=== PATIENT | male | born 1940 | race Caucasian/White ===

== ENCOUNTER 2024-01-24 06:21 | Observation (INO) ==
[~2024-01-24 06:21] MED LIST: Buffered Lidocaine 1% SYRIN 1 ml INTRADERM ONE; Lactated Ringers 1000 ml BAG 1,000 ML IV SCH
[2024-01-24 07:41] LABS: Rapid COVID-19 Molecular Undetected (Undetected)
[2024-01-24] MEDS ORDERED: Propofol 0 MG/0 ML BTL ONE (08:10)
[2024-01-24] MEDS ORDERED: Lidocaine 2% PF 5 ML VIAL ONE (08:11)
[2024-01-24] MEDS ORDERED: ceFAZolin 2 GM PREMIX 2 GM/50 ML BAG ONE (08:14)
[2024-01-24] MEDS ORDERED: Tranexamic Acid 1 GM/100ML BAG 2,000 MG/200 ML BAG IV ONE (08:14)
[2024-01-24] MEDS ORDERED: fentaNYL 100 mcg/2 ml 50 MCG/ML VIAL ONE (08:44)
[2024-01-24] MEDS ORDERED: Midazolam 2 mg/2 ml VIAL 1 mg/ml 2 ml VIAL (2 mg) ONE ×2 (08:44→10:49)
[2024-01-24] MEDS ORDERED: ROPIVACAINE 5 MG/ML 30 ML BTL (0.5%) ONE ×2 (08:45→09:13)
[2024-01-24] MEDS ORDERED: Bupivacaine 0.5% SDV PF 30ML VIAL ONE (09:19)
[2024-01-24] MEDS ORDERED: Rocuronium 50 mg VIAL 10 mg/ml 5 ml VIAL (50 mg) ONE (09:39)
[2024-01-24] MEDS ORDERED: fentaNYL 250 mcg/5 ml 50 MCG/ML 5 ml VIAL (250 MCG) ONE (09:39)
[2024-01-24] MEDS ORDERED: Glycopyrrolate IV 0.2 MG/ML 1 ML VIAL ONE (09:57)
[2024-01-24] MEDS ORDERED: Dexamethasone IV 4 MG/ML VIAL 1 ml VIAL ONE (10:20)
[2024-01-24] MEDS ORDERED: Ondansetron 4 mg VIAL 2 MG/ML 2 ml VIAL ONE (10:20)
[2024-01-24] MEDS ORDERED: Propofol 10 MG/ML 20 ML BTL ONE (10:22)
[2024-01-24] MEDS ORDERED: HYDROmorphone 0.5 MG/0.5 ML SYRINGE ONE (10:24)
[2024-01-24] MEDS ORDERED: Acetaminophen IV 1 GM/100ML 1,000 MG/100 ML BAG IV ONE (10:28)
[2024-01-24] MEDS ORDERED: fentaNYL 100 mcg/2 ml 50 MCG/ML VIAL IV PRN (11:36)
[2024-01-24] MEDS ORDERED: Naloxone 0.4 mg VIAL 0.4 mg/ml 1 ml VIAL IV PRN (11:36)
[2024-01-24] MEDS ORDERED: Morphine 2 MG/ML SYRINGE IV PRN (12:16)
[2024-01-24] MEDS ORDERED: Ondansetron ODT 4 mg TAB 4 MG TAB PO PRN (12:16)
[2024-01-24] MEDS ORDERED: Ondansetron 4 mg VIAL 2 MG/ML 2 ml VIAL IV PRN (12:16)
[2024-01-24] MEDS ORDERED: Magnesium Hydroxide LIQ 30 ML UDC PO PRN (12:16)
[2024-01-24] MEDS ORDERED: Lactulose 30 ml UDC PO PRN (12:16)
[2024-01-24] MEDS: Lactated Ringers 1000 ml BAG 1,000 ML IV SCH (14:54)
[2024-01-24] MEDS: ceFAZolin 1 GM ADVAN 1 GM in NS 0.9% 50 ML 50 ML IVPB SCH (17:56)
[2024-01-24 18:09] VITALS: BP 118/78
[2024-01-24] MEDS ORDERED: Magnesium Hydroxide LIQ 30 ML UDC PO SCH (21:00)
[2024-01-25] MEDS ORDERED: Vitamin THERAPEUTIC TAB PO SCH (09:00)
== END 2024-01-24 18:40 | disposition home or self-care (01) ==
LOC: INTOOBSV 06:21 → AA 06:21 → SSU 14:16
PROVIDERS: ADMIT Orthopaedic Surgery Adult Reconstructive Orthopaedic Surgery; ATTEND Orthopaedic Surgery Adult Reconstructive Orthopaedic Surgery